=== PATIENT | female | born 1975 | race African-American/Black ===

== ENCOUNTER 2018-09-02 20:03 | Emergency (ER) | payer OTHER, MEDICAID ==
[~2018-09-02] VITALS: Ht 167.6 cm; Wt 115.0 kg
[~2018-09-02 20:03] MED LIST: TRIA1TAB94 PO
[2018-09-02 22:09] VITALS: BP 211/116
[2018-09-02] MEDS ORDERED: KETOROLAC 60MG/2ML VIAL IM ONE (22:30)
== END 2018-09-02 23:38 | disposition home or self-care (01) ==
LOC: ER 20:03
DX: S80.02XA Contusion of left knee, initial encounter (principal); I10 Essential (primary) hypertension; F12.10 Cannabis abuse, uncomplicated; F17.290 Nicotine dependence, other tobacco product, uncomplicated; W18.39XA Other fall on same level, initial encounter; Y93.89 Activity, other specified; Y92.89 Other specified places as the place of occurrence of the external cause; Y99.8 Other external cause status
CPT/HCPCS: 73562; 96372; 99283; 99406; J1885; Z7610

== ENCOUNTER 2018-11-17 05:21 | Emergency (ER) | payer OTHER, MEDICAID ==
[~2018-11-17] VITALS: Ht 170.2 cm; Wt 114.0 kg
[2018-11-17] MEDS ORDERED: CLONIDINE 0.1MG TABLET PO ONE (07:00)
[2018-11-17 07:29] LABS: BASOPHILS % 0.5 % (0.0-2.0); EOSINOPHILS % 1.6 % (0.0-5.0); HEMOGLOBIN. 11.2 g/dL (12.0-16.0); LYMPHOCYTES % 17.7 % (20.0-50.0); MEAN CORPUSCULAR HEMOGLOBIN 22.9 pg (28.0-32.0); MEAN CORPUSCULAR VOLUME 71.5 fL (81.0-99.0); MONOCYTES % 5.1 % (2.0-8.0); NEUTROPHILS % 75.1 % (40.0-76.0); PLATELET 164 x1000/uL (130-400); RED CELL DISTRIBUTION WIDTH 18.2 % (11.6-14.6)
[2018-11-17] MEDS ORDERED: TRAMADOL 50MG TABLET PO ONE (07:30)
[2018-11-17 07:32] LABS: CHLORIDE 107 mEq/L (98-107)
[2018-11-17 08:51] VITALS: BP 165/82
== END 2018-11-17 09:27 | disposition home or self-care (01) ==
LOC: ER 05:21
DX: I16.0 Hypertensive urgency (principal); I10 Essential (primary) hypertension
CPT/HCPCS: 36415; 71045; 80048; 83880; 99284